=== PATIENT | female | born 1960 | race Caucasian/White ===

== ENCOUNTER 2016-12-25 13:40 | Emergency (ER) | payer BC ==
[2016-12-25 14:45] VITALS: BP 116/66
--- NOTE | 2016-12-25 15:15 | UC ---
Respiratory Complaint HPI - HPI Summary HPI Summary: 1. pt c/o sudden onset of nasal congestion, bilateral "ear fullness", dry cough , "watery eyes", and generalized malaise. 2. c/o fracturing left molar last night. - History of Current Complaint Chief Complaint: UCRespiratory Stated Complaint: COUGH/FEVER/CONGESTION Time Seen by Provider: 12/25/16 14:47 Hx Obtained From: Patient Hx Last Menstrual Period: n/a ?: No Onset/Duration: Sudden Onset, Lasting Days Timing: Constant Severity Initially: Mild Severity Currently: Moderate Character: Cough: Nonproductive Aggravating Factors: Recumbent Position Alleviating Factors: Nothing Associated Signs And Symptoms: Positive: URI, Nasal Congestion - Allergies/Home Medications Allergies/Adverse Reactions: Allergies Allergy/AdvReac Type Severity Reaction Status Date / Time No Known Allergies Allergy Verified 07/16/13 12:06 Home Medications: Home Medications [id number] [Excedrin Migraine 250-250-65 mg] 2 tab PO DAILY PRN 12/25/16 [History Confirmed 12/25/16] Nortriptyline CAP* [Nortriptylline CAP*] 10 mg PO 1700 12/25/16 [History Confirmed 12/25/16] Pantoprazole Sodium [Protonix] 10 mg PO DAILY PRN 12/25/16 [History Confirmed ] PMH/Surg Hx/FS Hx/Imm Hx Previously Healthy: Yes Endocrine History Of: Denies: Diabetes Cardiovascular History Of: Denies: Hypertension, Pacemaker/ICD GI/ History Of: Denies: Renal Disease Neurological History Of: Reports: Migraine - PRN ALEVE - Surgical History Surgical History: Yes Surgery Procedure, Year, and Place: ORIF LT RADIUS; ORIF LEFT ELBOW; X 2; APPY; GB; T&A; STOMACH STAPELING - Family History Known Family History: Positive: Other - positive FMH of URI - Social History Alcohol Use: Occasionally Substance Use Type: None Smoking Status (MU): Never Smoked Tobacco Review of Systems Constitutional: Negative Skin: Negative Eyes: Negative ENT: Other - nasal congestion, sinuss pressure, broken tooth Respiratory: Cough Cardiovascular: Negative Gastrointestinal: Negative Genitourinary: Negative Motor: Negative Neurovascular: Negative Musculoskeletal: Negative Neurological: Negative Psychological: Negative All Other Systems Reviewed And Are Negative: Yes Physical Exam Triage Information Reviewed: Yes Appearance: Ill-Appearing Vital Signs: Initial Vital Signs Temp 99.2 F 12/25/16 14:38 Pulse 75 12/25/16 14:38 Resp 20 12/25/16 14:38 BP 116/66 12/25/16 14:38 Pulse Ox 99 12/25/16 14:38 Eyes: Positive: Other: - watery eyes, scleritis ENT Exam: Other ENT: Positive: Nasal congestion, TM bulging - bilateral Dental: Positive: Dental Fracture @ - left lower last molar Neck exam: Normal Respiratory Exam: Normal Cardiovascular Exam: Normal Musculoskeletal Exam: Normal Neurological Exam: Normal Psychological Exam: Normal Skin Exam: Normal UC Diagnostic Evaluation - Laboratory O2 Sat by Pulse Oximetry: 99 Respiratory Course/Dx - Differential Dx/Diagnosis Differential Diagnosis/HQI/PQRI: Bronchitis, Influenza, Other - allergic rhinitis fractured tooth Provider Diagnoses: allergic rhinitis. fractured tooth- left lower molar (last) Discharge - Discharge Plan Condition: Stable Disposition: HOME Prescriptions: Amoxicillin CAP* 500 mg PO Q12H #14 cap Cetirizine-Pseudoephedrine [Zyrtec-D Allergy/Congesti] 1 tab PO DAILY #20 tab Nystatin SUSPENSION* 5 ml MT Q6HR #140 ml Patient Education Materials: Allergic Rhinitis (ED), Acute Dental Trauma (ED) Referrals: [facility] [Outside] No Primary Care Phys,NOPCP [Primary Care Provider] - Additional Instructions: Please follow up with your PCP as needed or return to clinic. Please follow up with a dental care provider for your complaint of fractured tooth.
== END 2016-12-25 15:30 | disposition home or self-care (01) ==
LOC: UCCORT 13:40
DX: J30.9 Allergic rhinitis, unspecified (principal); K03.81 Cracked tooth
CPT/HCPCS: 99211; G0463

== ENCOUNTER 2018-11-01 06:18 | Emergency (ER) | payer BC, OTHER ==
[2018-11-01] MEDS ORDERED: Ondansetron INJ* 2 MG/ML VIAL IV ONE (06:36)
[2018-11-01] MEDS ORDERED: NS 0.9% 1000 ML* 2,000 ML IV ONE (06:36)
[2018-11-01] MEDS ORDERED: Ketorolac INJ* 30 MG/ML 1 ML VIAL IV PUSH ONE (06:38)
--- NOTE | 2018-11-01 06:38 | ED ---
Influenza-Like Illness - HPI Summary HPI Summary: 57-year-old female presents with flulike symptoms for the past week. She admits to nausea and vomiting. She states she had a couple episodes diarrhea. No abdominal pain. She admits to occasional cough. No sore throat. She admits to headache but has history of migraines. She admits to sinus congestion. She states she just feels very weak. She states she feels like she can not keep anything down. She's tried Pedialyte without relief. Has no medical conditions. She works in the OR. - History of Current Complaint Chief Complaint: EDFluSymptoms Time Seen by Provider: 11/01/18 06:29 - Allergy/Home Medications Allergies/Adverse Reactions: Allergies Allergy/AdvReac Type Severity Reaction Status Date / Time No Known Allergies Allergy Verified 11/01/18 06:38 PMH/Surg Hx/FS Hx/Imm Hx Endocrine/Hematology History: Denies: Hx Diabetes Cardiovascular History: Denies: Hx Hypertension, Hx Pacemaker/ICD GI History: Reports: Hx Gastroesophageal Reflux Disease - NO MEDICATION AT THIS TIME History: Denies: Hx Dialysis, Hx Renal Disease Musculoskeletal History: Reports: Hx Tendonitis - ACHILLES-RIGHT - 5 YEARS AGO Sensory History: Reports: Hx Contacts or Glasses - GLASSES Denies: Hx Hearing Aid Opthamlomology History: Reports: Hx Contacts or Glasses - GLASSES Neurological History: Reports: Hx Migraine - PRN ALEVE Psychiatric History: Denies: Hx Panic Disorder - Surgical History Surgery Procedure, Year, and Place: ORIF LT RADIUS; ORIF LEFT ELBOW; X 2; APPY; GB; T&A; STOMACH STAPELING Hx Anesthesia Reactions: No Infectious Disease History: No Infectious Disease History: Denies: Traveled Outside the [place] in Last 30 Days - Family History Known Family History: Positive: Other - positive FMH of URI - Social History Alcohol Use: Occasionally Substance Use Type: Reports: None Hx Tobacco Use: No Smoking Status (MU): Never Smoked Tobacco Review of Systems Positive: Chills Negative: Chest Pain Positive: Cough. Negative: Shortness Of Breath Positive: Vomiting, Diarrhea, Nausea. Negative: Abdominal Pain Positive: Headache All Other Systems Reviewed And Are Negative: Yes Physical Exam Triage Information Reviewed: Yes Vital Signs On Initial Exam: Initial Vitals Temp Pulse Resp BP Pulse Ox 96.9 F 68 16 156/79 99 11/01/18 06:20 11/01/18 06:20 11/01/18 06:20 11/01/18 06:20 11/01/18 06:20 Vital Signs Reviewed: Yes Appearance: Positive: Ill-Appearing Skin: Positive: Warm, Dry Head/Face: Positive: Normal Head/Face Inspection Eyes: Positive: Normal, EOMI, DINO, Conjunctiva Clear ENT: Positive: Normal ENT inspection, Pharynx normal, TMs normal Respiratory/Lung Sounds: Positive: Clear to Auscultation, Breath Sounds Present Cardiovascular: Positive: Normal, RRR Abdomen Description: Positive: Nontender, Soft Bowel Sounds: Positive: Present Musculoskeletal: Positive: Normal Neurological: Positive: Normal Psychiatric: Positive: Normal Diagnostics - Vital Signs Vital Signs Temp Pulse Resp BP Pulse Ox 11/01/18 06:20 96.9 F 68 16 156/79 99 - Laboratory Result Diagrams: 11/01/18 06:49 11/01/18 06:49 Lab Statement: Any lab studies that have been ordered have been reviewed, and results considered in the medical decision making process. Re-Evaluation - Re-Evaluation First Eval Re-Evaluation Time: 07:30 Change: Improved Comment: feeling better after fluids Second Eval Re-Evaluation Time: 08:47 Change: Improved Comment: feels ready to go home Flu Symptom Course/Dx - Course Course Of Treatment: 57-year-old female presents with flulike symptoms for the past week. She admits to nausea and vomiting. She states she had a couple episodes diarrhea. No abdominal pain. She admits to occasional cough. No sore throat. She admits to headache but has history of migraines. She admits to sinus congestion. She states she just feels very weak. She states she feels like she can not keep anything down. She's tried Pedialyte without relief. Has no medical conditions. on exam appears ill. lungs CTA. abd soft nontender. wbc normal. flu negative. crp normal. potassium is low at 3.3 so supplemented. gave fluids and feeling better. will discharge with zofran. patient understand and agrees with plan. - Diagnoses Differential Diagnosis/HQI/PQRI: Positive: Bronchitis, Influenza, Upper Respiratory Infection Provider Diagnoses: Vomiting, Viral syndrome Discharge - Sign-Out/Discharge Documenting (check all that apply): Patient Departure - Discharge Plan Condition: Good Disposition: HOME Prescriptions: Ondansetron ODT TAB* [Zofran 4 MG Odt TAB*] 4 mg PO Q6H PRN #12 tab.odt PRN Reason: Nausea Patient Education Materials: Viral Syndrome (ED) Forms: *Work Release Referrals: [facility] [place] [facility] [Outside] Additional Instructions: Can take Zofran every 6 hours as needed for nausea Drink small amounts of fluid as tolerated When able to eat follow BRAT diet: Bananas, rice, applesauce, toast Take ibuprofen or Tylenol for pain as needed every 6 hours Follow up with primary Return to ED if develop any new or worsening symptoms - Billing Disposition and Condition Condition: GOOD Disposition: Home
[2018-11-01 06:58] LABS: ABS Basophils 0.1 10^3/ul (0-0.2); ABS Eosinophils 0.2 10^3/ul (0-0.6); ABS Monocytes 0.9 10^3/ul (0-0.8); ABS Neutrophils 5.2 10^3/ul (1.5-7.7); ABS Nucleated RBC 0 10^3/ul; Eosinophil % 1.9 %; Hematocrit 42 % (35-47); Hemoglobin 14.9 g/dl (12.0-16.0); Mean Corpuscular HGB Conc 35 g/dl (31-36); Mean Corpuscular Hemoglobin 30 pg (27-31); Mean Corpuscular Volume 84 fL (80-97); Mean Platelet Volume 9.6 fL (7.4-10.4); Nucleated Red Blood Cells % 0.1; Platelet Count 184 10^3/ul (150-450); Red Blood Count 5.07 10^6/ul (4.00-5.40); Red Cell Distribution Width 14 % (10.5-15); White Blood Count 8.3 10^3/ul (3.5-10.8)
[2018-11-01 07:17] LABS: Albumin 3.9 g/dL (3.2-5.2); Albumin/Globulin Ratio 1.3 (1-3); BUN/Creatinine Ratio 18.5 (8-20); C Reactive Protein 5.21 mg/L (<8.01); Calcium 9.9 mg/dL (8.6-10.3); EGFR Non-African American 73.1 (>60); Magnesium 1.9 mg/dL (1.9-2.7); Potassium 3.3 mmol/L (3.5-5.0); Total Protein 6.9 g/dL (6.4-8.9)
[2018-11-01] MEDS ORDERED: Potassium Chlor TAB* 20 MEQ TAB.ER PO ONE (07:44)
[2018-11-01 08:46] LABS: Urine Appearance Cloudy; Urine Bilirubin Negative (Negative); Urine Blood Negative (Negative); Urine Color Yellow; Urine Glucose Negative (Negative); Urine Ketones Negative (Negative); Urine Nitrite Negative (Negative); Urine Protein Negative (Negative); Urine Urobilinogen Negative (Negative)
[2018-11-01 08:55] VITALS: BP 116/70
== END 2018-11-01 08:55 | disposition home or self-care (01) ==
LOC: ED 06:18
DX: B34.9 Viral infection, unspecified (principal); R11.2 Nausea with vomiting, unspecified; R51 Headache; R19.7 Diarrhea, unspecified; R05 Cough
CPT/HCPCS: 36415; 80053; 81003; 83605; 83735; 85025; 86140; 96374; 96375; 99283; A9270-GY; J1885; J2405